=== PATIENT | female | born 1960 | race Caucasian/White ===

== ENCOUNTER → 2024-02-09 08:43 | Outpatient (REF) | payer BC, SELFPAY ==
[2024-02-09 10:33] LABS: % Basophils 2.3 % (0-2); % Eosinophils 1.7 % (0-6); % Monocytes 14.1 % (1.7-9.3); % Neutrophils 34.9 % (42.2-75.2); Absolute Basophils 0.1 10^3/uL (0-0.2); Absolute Eosinophils 0.1 10^3/uL (0-0.7); Absolute Lymphocytes 1.4 10^3/uL (1.2-3.4); Absolute Monocytes 0.4 10^3/uL (0.1-0.6); Hematocrit 35.9 % (37.0-47.0); Hemoglobin 12.4 g/dL (12.0-16.0); Mean Corp Hgb Conc. 34.5 g/dL (33.0-37.0); Mean Corpuscular Hgb 31.6 pg (27.0-31.0); Mean Corpuscular Volume 91.6 fL (81.0-99.0); Nucleated Red Blood Cells % 0 %; Platelet Count 175 10^3/uL (130-400); Red Blood Cell Count 3.92 10^6/uL (4.20-5.40); Red Cell Dist. Width 12.2 % (11.5-14.5)
[2024-02-09 11:19] LABS: ALT (SGPT) 20 U/L (0-35); AST (SGOT) 33 U/L (14-36); Albumin 3.9 g/dl (3.5-5.0); Alkaline Phosphatase 90 U/L (38-126); Blood Urea Nitrogen 15 mg/dl (7-17); Calcium 9.3 mg/dl (8.4-10.2); Carbon Dioxide 29 mmol/L (22-30); Chloride 105 mmol/L (98-107); Glucose 85 mg/dl (70-99); HDL Cholesterol 79 mg/dl; LDL Cholesterol, Calculated 88 mg/dl; Potassium 4.5 mmol/L (3.5-5.1); Sodium 137 mmol/L (135-145); Total Bilirubin 0.5 mg/dl (0.2-1.3); Total Cholesterol 181 mg/dl (50-199); Total Protein 6.1 g/dl (6.3-8.2); Triglyceride 71 mg/dl (10-149); Very Low Density Lipoprotein 14 mg/dl (0-30); eGFR > 60.00
[2024-02-09 11:23] LABS: Free T4 1.74 ng/dl (0.78-2.19); Vitamin D, 25-OH*** 35.5 ng/mL (30-80)
[2024-02-09 11:36] LABS: TSH < 0.02 uIU/ml (0.47-4.68)
[2024-02-10 09:44] LABS: Thyroid Peroxidase Ab (TPO) 6.4 IU/mL (0.0-9.0)
[2024-02-11 16:02] LABS: Lyme Antibody Screen, EIA Negative (Negative)
== END ==
LOC: RAD 08:43
PROVIDERS: ATTENDING PHYSICIAN Nurse Practitioner Primary Care
DX: M25.562 Pain in left knee (principal); Z00.00 Encounter for general adult medical examination without abnormal findings; E03.8 Other specified hypothyroidism; E55.9 Vitamin D deficiency, unspecified; D72.819 Decreased white blood cell count, unspecified
CPT/HCPCS: 36415; 73564; 80053; 80061; 82306; 84439; 84443; 85025; 86376; 86618

== ENCOUNTER → 2024-04-30 17:48 | Outpatient (REF) | payer BC, SELFPAY | LOC: WDC 17:48 | PROVIDERS: ATTENDING PHYSICIAN Obstetrics & Gynecology Gynecology; FAMILY PHYSICIAN Nurse Practitioner Primary Care | DX: Z01.419 Encounter for gynecological examination (general) (routine) without abnormal findings (principal); Z12.31 Encounter for screening mammogram for malignant neoplasm of breast | CPT/HCPCS: 77063; 77067 ==

== ENCOUNTER → 2025-05-27 18:08 | Outpatient (REF) | payer BC, SELFPAY | LOC: WDC 18:08 | PROVIDERS: ATTENDING PHYSICIAN Obstetrics & Gynecology Gynecology; FAMILY PHYSICIAN Nurse Practitioner Primary Care | DX: Z12.39 Encounter for other screening for malignant neoplasm of breast (principal); Z12.31 Encounter for screening mammogram for malignant neoplasm of breast | CPT/HCPCS: 77063; 77067 ==

== ENCOUNTER → 2025-05-30 08:54 | Outpatient (REF) | payer BC, SELFPAY ==
[2025-05-30 10:47] LABS: Hematocrit 41.0 % (37.0-47.0); Hemoglobin 13.5 g/dL (12.0-16.0); Mean Corp Hgb Conc. 32.9 g/dL (33.0-37.0); Mean Corpuscular Volume 94.5 fL (81.0-99.0); Nucleated Red Blood Cells % 0 %; Platelet Count 194 10^3/uL (130-400); Red Cell Dist. Width 12.0 % (11.5-14.5)
[2025-05-30 11:10] LABS: ALT (SGPT) 21 U/L (0-35); AST (SGOT) 34 U/L (14-36); Albumin 4.3 g/dl (3.5-5.0); Alkaline Phosphatase 80 U/L (38-126); Blood Urea Nitrogen 25 mg/dl (7-17); Calcium 9.3 mg/dl (8.4-10.2); Carbon Dioxide 29 mmol/L (22-30); Chloride 106 mmol/L (98-107); Glucose 77 mg/dl (70-99); HDL Cholesterol 93 mg/dl; LDL Cholesterol, Calculated 111 mg/dl; Potassium 4.4 mmol/L (3.5-5.1); Sodium 139 mmol/L (135-145); Total Protein 6.7 g/dl (6.3-8.2); Very Low Density Lipoprotein 11 mg/dl (0-30); eGFR > 60.00
[2025-05-30 11:26] LABS: Vitamin D, 25-OH*** 31.6 ng/mL (30-80)
[2025-05-30 11:39] LABS: TSH 0.27 uIU/ml (0.47-4.68)
[2025-05-30 11:58] LABS: Vitamin B12 572 pg/ml (239-931)
== END ==
LOC: REG 08:54
PROVIDERS: ATTENDING PHYSICIAN Nurse Practitioner Primary Care
DX: Z00.00 Encounter for general adult medical examination without abnormal findings (principal); E03.8 Other specified hypothyroidism; E55.9 Vitamin D deficiency, unspecified; D72.819 Decreased white blood cell count, unspecified; Z78.9 Other specified health status
CPT/HCPCS: 36415; 80053; 80061; 82306; 82607; 84439; 84443; 85025